=== PATIENT | male | born 1945 | race Hispanic/Latino ===

== ENCOUNTER 2024-02-20 10:08 | Emergency (ER) | payer MEDICARE ==
[~2024-02-20] VITALS: Ht 162.6 cm; Wt 74.4 kg
[2024-02-20 10:15] VITALS: PULSE 72; RESP 16; TEMP 98.1; O2SAT 100
[2024-02-20] MEDS ORDERED: BACTRIM DS TAB1 EACH PO (10:52)
== END 2024-02-20 11:00 | disposition home or self-care (01) ==
LOC: ER 10:12
DX: L03.311 Cellulitis of abdominal wall (principal); I10 Essential (primary) hypertension; K76.9 Liver disease, unspecified; Z96.653 Presence of artificial knee joint, bilateral
CPT/HCPCS: 99283